=== PATIENT | male | born 2000 | race African-American/Black ===

== ENCOUNTER 2024-01-13 18:12 | Emergency (ER) | payer OTHER, SELFPAY ==
[2024-01-13 18:16] VITALS: BP 122/75; PULSE 75; RESP 20; TEMP 36.9; O2SAT 98
--- NOTE | 2024-01-13 18:21 | ED.SKABFB ---
HPI - Skin/Abscess/Foreign Bdy General Chief complaint: Wound/Laceration Stated complaint: Fall, L Wrist Laceration Time Seen by Provider: 01/13/24 18:13 History of Present Illness HPI narrative: 23-year-old male with no reported past medical history presents by EMS for left wrist laceration. Patient [place] with a friend when he slipped over somewhat ground. He states that he slid down and his wrist caught on something sharp, causing his laceration. His friend put quick clot material on the wound and called 911. Patient was in the and states that he was up-to-date on his tetanus vaccinations. Patient denies numbness, weakness, decreased range of motion of his fingers. Denies other accident or injury. Related Data Allergies Allergy/AdvReac Type Severity Reaction Status Date / Time No Known Drug Allergies Allergy Verified 01/13/24 18:15 Patient History Social History Smoking Status: Never smoker Exam Initial Vital Signs Initial Vital Signs: Vital Signs Temperature 98.4 F 01/13/24 18:16 Pulse Rate 75 01/13/24 18:16 Respiratory Rate 20 01/13/24 18:16 Blood Pressure 122/75 01/13/24 18:16 Pulse Oximetry 98 01/13/24 18:16 Oxygen Delivery Method Room Air 01/13/24 18:16 Const: Awake, alert, no acute distress, nontoxic appearing MSK: full ROM of wrist, fingers. Able to flex and extend all finger joints. able to cross all fingers Skin: L wrist with 2 horizontal lacerations. Proximal lac 3cm, distal lac 5cm Neuro: AO x3, CN II-XII grossly intact, moves all extremities Procedures Laceration Repair Laceration 1: Site: upper extremity Side (If applicable): left Size (cm): 3 Description: linear Depth: simple, single layer Local Anesthetic: lidocaine 1% and with epi Amount of anesthesia used (mL): 4 Pre-repair: wound explored, irrigated extensively, deep structures intact and extensive debridement Skin layer closed with: nylon Skin layer suture size: 4-0 Number of sutures: 6 Technique: simple, interrupted Laceration 2: Site: upper extremity Side (If applicable): left Size (cm): 5 Description: linear Depth: simple, single layer Local Anesthetic: lidocaine 1% and with epi Amount of anesthesia used (mL): 6 Pre-repair: wound explored, irrigated extensively, deep structures intact and extensive debridement Skin layer closed with: nylon Skin layer suture size: 4-0 Number of sutures: 10 Technique: simple, interrupted Course Orders Ordered: Discontinued Medications Bacitracin (Bacitracin Oint 0.9 Gm Pckt) 2 applic TOP NOW ONE Stop: 01/13/24 19:29 Last Admin: 01/13/24 19:35 Dose: 2 applic Documented By: AB Lidocaine/Epinephrine (Lidocaine 1% W/Epi) 4 ml INJ INTRA-OP ONE Stop: 01/13/24 18:18 Last Admin: 01/13/24 19:00 Dose: 4 ml Documented By: AB Oxycodone HCl (Oxycodone Ir 5 Mg Tablet) 5 mg PO NOW ONE Stop: 01/13/24 18:18 Last Admin: 01/13/24 18:25 Dose: 5 mg Documented By: MESERET Vital Signs Vital signs: Vital Signs - 8 hr 01/13/24 18:16 Temperature 98.4 F Pulse Rate 75 Respiratory Rate 20 Blood Pressure 122/75 Pulse Oximetry 98 Oxygen Delivery Method Room Air MDM - Skin/Abscess/Foreign Bdy Differential Diagnosis Differential diagnosis: Likely abscess of skin or subcutaneous tissue and other (laceration, abrasion) MDM Narrative Medical decision making narrative: Slip and fall with accidental wrist laceration. Patient did have a lot of organic material in the wound. It was copiously irrigated by ED staff with Betadine and normal saline. After irrigation the wound was anesthetized and explored. Thankfully the patient did not appear to have any injury below the fascial layer. Wound was repaired per procedure note. Patient was able to flex and extend his wrist, flex and extend all extremities, he appeared to have fine motor skills in all of his fingers without any evidence of neurologic, vascular, or muscle involvement. Placed in soft wrist splint for stabilization of sutures in the immediate healing phase. Patient counseled on wound care precautions and importance of follow up. Patient advised on what to do if he were to experience any change in the functionality of his left-hand Discharge Plan Departure Patient Disposition: Home Clinical Impression: Laceration Instructions: DI for Laceration Repair Activity Restrictions/Additional Instructions: Your wound was repaired with 17 sutures. These will need to be removed in 7-10 days. Keep them clean and dry. You may shower but if you get the sutures wet then gently pat them dry. Wear the wrist splint to sleep tonight and then any time you were active during the day for at least the next 3-5 days to help stabilize the sutures. Take Tylenol and ibuprofen every 6-8 hours as needed per label instructions for pain or swelling. You may also apply ice to bruising. If you notice any abnormal redness, drainage, or swelling please return immediately for repeat evaluation. Referrals: ProviderDivina [Primary Care Provider] - Stand Alone Forms: Patient Portal/API/Survey, Work Release Note
[2024-01-13] MEDS: OXYCODONE IR 5 MG TABLET PO (18:25)
[2024-01-13] MEDS: LIDOCAINE 1% W/EPI 4 ML INJ (19:00)
[2024-01-13] MEDS: BACITRACIN OINT 0.9 GM PCKT 2 APPLIC TOP (19:35)
== END 2024-01-13 19:45 | disposition home or self-care (01) ==
PROVIDERS: Emergency Provider Emergency Medicine
DX: S61.512A Laceration without foreign body of left wrist, initial encounter (principal); W01.119A Fall on same level from slipping, tripping and stumbling with subsequent striking against unspecified sharp object, initial encounter
CPT/HCPCS: 12004; 99284